=== PATIENT | female | born 1955 | race Caucasian/White ===

== ENCOUNTER 2017-08-18 20:56 | Inpatient (IN) | payer MEDICARE, MEDICAID ==
[2017-08-18 23:32] VITALS: BP 146/92
[2017-08-18] MEDS ORDERED: Magnesium Hydroxide (MOM) 30 mL UDC PO PRN (23:32)
[2017-08-18] MEDS ORDERED: Maalox 30 mL Cup PO PRN (23:32)
[2017-08-19] MEDS: Multivitamin Tab PO SCH (08:33)
--- NOTE | 2017-08-19 13:18 | History & Physical ---
ADMIT DATE: PATIENT IDENTIFICATION: A 62-year-old female. CHIEF COMPLAINT: "I don't know why they brought me here." HISTORY SOURCE: Talking to the patient and reviewing the chart. HISTORY OF PRESENT ILLNESS: The patient is a 62-year-old female, has diagnosis of multiple sclerosis since 1992, has chronic back pain, underwent laminectomy for her osteoarthritis and herniated disk disease, carries diagnosis of hypertension and insomnia, presented to local Emergency Room for altered mental status, where the patient was intubated and sedated and there the patient was extensively evaluated and noted to have bilateral infiltrate associated with toxic metabolic encephalopathy secondary to ingestion of doxepin. The patient was subsequently extubated and now transferred here to psych unit for further management. PAST MEDICAL HISTORY: Remarkable for; 1. Multiple sclerosis. 2. Hypertension. 3. Psychotic disorder. 4. DJD. 5. Osteoporosis. 6. History of back surgery for herniated disk disease. MEDICATIONS: At the time of transfer has been reviewed and reconciled appropriately. ALLERGIES: The patient is not allergic to any medications. SOCIAL HISTORY: The patient lives in [facility]. The patient has no history of smoking cigarette, alcohol or drug use. FAMILY MEDICAL HISTORY: Remarkable for cancer. REVIEW OF SYSTEMS: The patient stated that she is very unsteady and she falls multiple times at home. The patient denies any chest pain, shortness of breath, palpitation, dizziness, nausea, vomiting, diarrhea, dysuria, hematuria, hematochezia, melena. No seizure or syncopal episode. PAST SURGICAL HISTORY: Remarkable for ectopic and back surgery. PHYSICAL EXAMINATION: GENERAL: A 62-year-old, alert and awake, lying in the bed without any acute distress. VITAL SIGNS: Temperature 98, pulse is 74, respiratory rate is 18, and blood pressure 134/70. HEENT: Normocephalic and atraumatic. Extraocular muscles are intact. Tongue was pink and coated. Poor dentition noted. No oral lesions. No exudate. No sinus tenderness. NECK: Supple. No JVD. No hepatojugular reflux. No lymphadenopathy, thyromegaly or carotid bruit. HEART: Both heart sounds are regular. CHEST AND LUNGS: Equal in expansion. No wheezing. No crackles. ABDOMEN: Soft. No guarding, no rigidity. Bowel sounds present. No palpable mass. EXTREMITIES: No edema, no cyanosis. Peripheral pulses are +1. No calf tenderness noted. BACK: Remarkable for severe right convex scoliosis noted. No spinal tenderness noted. NEUROLOGIC: Alert, awake and oriented to time, place and person. 2-12 cranial nerves are intact. Power in upper and lower extremities are 4+. Unsteady gait with broad-based gait noted. Sensation to touch were both decreased noted. ____ Babinski's in both toes are going down. DIAGNOSTIC DATA: Available diagnostic data performed at outside the hospital. The patient's CT chest was done on August 11, was severe extensive bilateral infiltrate noted. The patient is also noted to have severe chronic deep white matter changes noted along with ____ in the left caudate head on the CT head also noted. CLINICAL IMPRESSION: 1. Status post doxepin overdose. 2. Aspiration pneumonia by chest x-ray. 3. Hypertension. 4. Multiple sclerosis. 5. High risk for fall. 6. Psychotic disorder. 7. Status post back surgery. 8. Osteoporosis. 9. Neurogenic bladder. PLAN: The patient is admitted at this time to Geropsych Unit. Psychotic evaluation management deferred to psychiatrist. We will get the followup chest x-ray. Appropriate home medicine reconciliation. Fall precautions were provided. General nursing care will be provided. We will continue to follow this patient during her stay in the hospital. Once the patient is stable, we will put the patient on Avonex, as the patient was receiving for her multiple sclerosis as well. I sincerely thank you, Dr. Montejo, for giving me the opportunity to participate in patient of yours. JOB# [id number]
[2017-08-19] MEDS ORDERED: PYRIDOXINE PO SCH (21:00)
[2017-08-19] MEDS ORDERED: MELATONIN PO SCH (21:00)
[2017-08-19] MEDS: Docusate Sodium/Senna Tab PO SCH (21:45)
--- NOTE | 2017-08-20 00:48 | Psychosocial Evaluation ---
DATE OF SERVICE: 08/19/2017 JUSTIFICATION FOR HOSPITALIZATION: 5150 hold. The patient overdosed on doxepin in a suicide effort. CHIEF COMPLAINT: "I was very depressed." HISTORY OF PRESENT ILLNESS: A 62-year-old female with history of multiple sclerosis for many years. The patient notes she has been depressed since 1982, worsening mood over the past few months after moving to [place], [place], states that too few people there speak [place]. The patient attest to "lousy sleep," okay appetite, loss of hope noting that her medical problems and living situations were "getting to me." The patient was feeling quite hopeless and despairing. Endorses ongoing depression. PAST PSYCHIATRIC HISTORY: Depression, no suicide history. SOCIAL HISTORY: Born in [place], since 1993, one daughter who is an adult. No drugs, no alcohol. The patient knows she is an ex-smoker, stopped smoking "years ago." MEDICAL: Please see full H and P. MENTAL STATUS EXAMINATION: Stated age. Fair eye contact. Speech, decreased content, low volume. Mood depressed. Affect withdrawn. Thought processes were linear. Thought content, status post serious overdose effort. No HI, no psychotic symptoms. Insight and judgment diminished. Poor impulse control. PROVISIONAL DIAGNOSES: Major depression, recurrent, severe, no psychosis. Also, insomnia unspecified, anxiety unspecified. MEDICAL: Please see full H and P including multiple sclerosis. ESTIMATED LENGTH OF STAY: 5-7 days. ASSESSMENT: The patient is depressed, tried to kill herself, remains hopeless and despairing. PLAN: We will continue medications and make appropriate adjustments. TREATMENT PLAN: Includes group as well as milieu therapy. CONDITIONS FOR DISCHARGE: Improved mood, improved affect, cessation of any SI, better coping. JOB# [id number]
[2017-08-20] MEDS ORDERED: [UNRECOGNIZED DRUG - OTHER] PO SCH (09:00)
[2017-08-20] MEDS ORDERED: HYDROCHLOROTHIAZIDE PO SCH (09:00)
[2017-08-20] MEDS ORDERED: LISINOPRIL PO SCH (09:00)
[2017-08-20] MEDS: Multivitamin Tab PO SCH (09:45)
--- NOTE | 2017-08-20 11:04 | Progress Notes ---
DATE: 08/20/2017 THE PATIENT'S ID: A 62-year-old female. SUBJECTIVE: The patient seen and examined. The patient is lying in the bed, no new event. The patient denies any chest pain, shortness of breath, palpitation, dizziness, nausea, vomiting. PHYSICAL EXAMINATION: VITAL SIGNS: Temperature 98, pulse is 64, respiration 18, blood pressure 130/80. HEENT: No facial asymmetry. Poor dentition noted. NECK: Supple, no JVD. HEART: Irregular. CHEST AND LUNGS: Equal in expansion. No wheezing, no crackles. ABDOMEN: Soft. EXTREMITIES: No edema. CLINICAL IMPRESSION: 1. Status post respiratory failure for doxepin overdose. 2. Hypertension. 3. Multiple sclerosis. 4. High risk for fall. 5. Psychotic disorder. 6. Osteoporosis. 7. Degenerative joint disease. 8. Neurogenic bladder. PLAN: 1. Await for followup chest x-ray. 2. Calcium with vitamin D supplement. 3. Psych medication. 4. Psych followup. 5. General nursing care. 6. Fall precautions. 7. Follow lab. 8. We will continue to follow this patient during the stay in the hospital. JOB# [id number]
--- NOTE | 2017-08-20 11:18 | Diagnostic Imaging Report ---
CHEST X-RAY: AP view INDICATION: Pneumonia COMPARISON: None FINDINGS: Chronic lung changes are seen with no focal consolidation or effusions. Heart size normal. Spinal scoliosis is noted. IMPRESSION: Chronic lung changes with no focal airspace consolidation identified.
[2017-08-20] MEDS: Docusate Sodium/Senna Tab PO SCH (21:19)
[2017-08-21 06:56] LABS: % BASOPHILS 0.6 % (0.0-2.0); % EOSINOPHILS 0.9 % (0.0-5.0); % LYMPHOCYTES 15.9 % (20.0-50.0); % NEUTROPHILS 77.6 % (40.0-80.0); BASOPHILE ABSOLUTE 0.1 Th/cumm (0-0.2); EOSINOPHILE ABSOLUTE 0.1 Th/cmm (0.1-0.4); HEMATOCRIT 39.6 % (41.0-60); LYMPHOCYTE ABSOLUTE 2.1 Th/cmm (1.5-3.0); MEAN CELL VOLUME 85.3 fl (81-100); MEAN CORPUSCULAR HGB CONC 32.9 pg (28.0-36.0); MEAN PLATELET VOLUME 7.1 fl; MONOCYTE ABSOLUTE 0.6 Th/cmm (0.3-1.0); PLATELET COUNT 721 Th/cmm (150-400); RED BLOOD COUNT 4.64 Mil/cmm (3.80-5.10); RED CELL DISTRIBUTION WIDTH 11.9 % (11.5-20.0); WHITE BLOOD COUNT 12.9 Th/cmm (4.8-10.8)
[2017-08-21 07:08] LABS: ALBUMIN 3.4 gm/dL (3.7-5.3); ALKALINE PHOSPHATASE 66 U/L (34-104); ANION GAP 11.8 (7.0-16.0); BILIRUBIN,TOTAL 0.4 mg/dL (0.3-1.0); BUN - UREA NITROGEN 20 mg/dL (7-25); CALCIUM SERUM 9.3 mg/dL (8.6-10.3); CARBON DIOXIDE 24.3 mEq/L (21.0-31.0); CHLORIDE 103 mEq/L (98-107); CREATININE - SERUM 0.7 mg/dL (0.6-1.2); GFR AFRICAN-AMERICAN > 60.0 ml/min (>90); GFR NON AFRICAN-AMERICAN > 60.0 ml/min; GLUCOSE 107 mg/dL (70-105); POTASSIUM SERUM 4.1 mEq/L (3.5-5.1); SGOT 20 U/L (13-39); SGPT/ALT 41 U/L (7-52); SODIUM SERUM 135 mEq/L (136-145); TOTAL PROTEIN,SERUM 6.8 gm/dL (6.0-8.3)
--- NOTE | 2017-08-21 08:18 | Progress Notes ---
DATE: SUBJECTIVE: The patient was seen, chart reviewed, discussed with staff. The patient is currently in the hospital. She has been severely depressed, overdosed on doxepin, a suicide effort. She remains depressed, withdrawn, but on a positive note, she is participating in physical therapy, sleeping well, eating fairly well, still remains withdrawn. ASSESSMENT: The patient is status post serious suicide effort, not safe for a lower level of care at this time and will continue to monitor and continue to assess for suicidality, continue to encourage group as well as milieu therapy. Medications were reviewed as well. JOB# [id number]
[2017-08-21] MEDS: Calcium Carb/Vit D 500 mg/200 U Tab PO SCH ×2 (08:33→16:23)
[2017-08-21] MEDS: Multivitamin Tab PO SCH (08:35)
--- NOTE | 2017-08-21 16:54 | Progress Notes ---
DATE: 08/21/2017 Case was discussed with staff of the patient, reviewed records. Covering for Dr. Montejo. This is a 52-year-old female who was admitted on 08/18/2017 after she did overdose on doxepin and suicide attempt, has been depressed since 1982, worsening mood over the past 2 months after moving to [place], [place], states that too few people there speak Irish. The patient states poor sleep, okay appetite. She has been quite hopeless and despairing ongoing depression. The patient continues to be depressed, overwhelmed. She is on a wheelchair. She is at fall risk. She has been on Abilify 2.5 mg in the evening and also she takes calcium carbonate, vitamin D one tablet twice a day and hydrochlorothiazide 12.5 mg daily, lisinopril 10 mg daily and also she was on multivitamin daily, Effexor 75 mg in the morning and with no side effects, no sedation, no nausea, no extrapyramidal symptoms. I will continue on outpatient group and milieu therapy. [facility]# [id number]
[2017-08-21] MEDS: Docusate Sodium/Senna Tab PO SCH (21:10)
[2017-08-22] MEDS: Multivitamin Tab PO SCH (09:36)
[2017-08-22] MEDS: Calcium Carb/Vit D 500 mg/200 U Tab PO SCH ×2 (09:38→17:06)
[2017-08-22] MEDS: Docusate Sodium/Senna Tab PO SCH (21:05)
--- NOTE | 2017-08-23 01:25 | Progress Notes ---
DATE: 08/22/2017 PSYCHIATRIC FOLLOWUP NOTE The patient was seen and evaluated. The patient's chart reviewed. Covering for Dr. Montejo. IDENTIFYING DATA: A 62-year-old female with a history of multiple sclerosis for many years. She has been depressed in 1982, feeling overwhelmed and currently living in [place], alluding to a lot of depression. Current medications regimen includes the following: Lisinopril, hydrochlorothiazide, Ativan and Effexor 75 mg. Today, on [id number] evaluation, the patient is very irritable, agitated, reported to be feeling depressed and she reports being lonely for a very long time. MENTAL STATUS EXAMINATION: Depressed, melancholic, aloof ___. ASSESSMENT AND PLAN: The patient is a 62-year-old female who presents with aloof, depressed and melancholic. Tolerating the recent augmentation of Abilify and Effexor without complication. We will continue with the current medication regimen if continues to be steady state. [facility]# [id number]
[2017-08-23] MEDS: Calcium Carb/Vit D 500 mg/200 U Tab PO SCH ×2 (10:02→17:13)
[2017-08-23] MEDS: Multivitamin Tab PO SCH (10:02)
--- NOTE | 2017-08-23 20:23 | Progress Notes ---
DATE: 08/23/2017 SUBJECTIVE: The patient was seen and evaluated. The patient's chart reviewed. Covering for Dr. Montejo. Today on [id number] evaluation, she reports that she still continues to be sad, overwhelmed. She feels like nothing is helping. MENTAL STATUS EXAMINATION: Depressed, melancholic, aloof. ASSESSMENT AND PLAN: A 62-year-old female with a history of severe depression, continues to feel very withdrawn, disengaged, tolerating the recent augmentation of Abilify and Effexor without complications or side effects of medications. We will continue with the current medication regimen. She continues to be in steady state and continue following primary psychiatrist's treatment plan and goals. [facility]# [id number]
[2017-08-23] MEDS: Docusate Sodium/Senna Tab PO SCH (21:21)
--- NOTE | 2017-08-24 02:45 | Progress Notes ---
DATE: 08/23/2017 SUBJECTIVE: The patient is seen and examined. No new complaint. PHYSICAL EXAMINATION: VITAL SIGNS: Temperature 97, pulse is 68, respiratory rate 18, blood pressure 144/76. HEENT: No facial asymmetry. NECK: Supple, no JVD. HEART: Regular, no murmur. CHEST: Equal in expansion, no wheezing, no crackles. ABDOMEN: Soft. No guarding or rigidity. Bowel sounds are not palpable. EXTREMITIES: No edema. NEUROLOGIC: Alert, follows commands. MAR and nurse's note is reviewed. CLINICAL IMPRESSION: 1. Hypertension. 2. Multiple sclerosis. 3. Psychotic disorder. 4. Osteoporosis. 5. Degenerative joint disease. 6. Neurogenic bladder. 7. High risk for fall. PLAN: 1. Fall precautions. 2. Avonex as ordered. 3. General nursing care. 4. Psych medication. 5. Psych followup. 6. Continue current medication. 7. Symptoms management. 8. Medication management. 9. Care plan reviewed and discussed. JOB# [id number]
[2017-08-24] MEDS: Multivitamin Tab PO SCH (09:19)
[2017-08-24] MEDS: Calcium Carb/Vit D 500 mg/200 U Tab PO SCH ×2 (09:19→17:13)
--- NOTE | 2017-08-24 19:03 | Progress Notes ---
DATE: 08/24/[address] Montejo. I appreciate the followup note. Medical doctor will continue his medical recommendations as Avonex was recently ordered, general nursing care and continue with the current medical treatment. Today on [id number] evaluation, the patient reports that she is still very distraught, overwhelmed. MENTAL STATUS EXAMINATION: Depressed, withdrawn, disengaged. ASSESSMENT AND PLAN: A 62-year-old female with severe depression, withdrawn and disengaged, unable to formulate a safe plan outside the structured environment. We will continue monitoring and evaluating, continue working very closely with the rehabilitation caseworker for safe dispo once the patient is further stabilized. JOB# [id number]
[2017-08-24] MEDS: Docusate Sodium/Senna Tab PO SCH (20:42)
[2017-08-25] MEDS: Multivitamin Tab PO SCH (09:44)
[2017-08-25] MEDS: Calcium Carb/Vit D 500 mg/200 U Tab PO SCH ×2 (09:45→17:47)
[2017-08-25] MEDS: Docusate Sodium/Senna Tab PO SCH (20:49)
--- NOTE | 2017-08-25 23:58 | Progress Notes ---
DATE: 08/25/2017 SUBJECTIVE: The patient in the hospital, history of multiple sclerosis, tried to kill herself, overdosed on doxepin. The patient remains somewhat depressed, withdrawn. She, on a positive note is alluding to more hopes, states her mood is somewhat better. States she is involved and in touch with her slip cover cutter, attests to poor sleep, but she is hopeful about the future, concerns about her depression and her suicide attempt, but she does seem to be with better insight. ASSESSMENT: The patient remains depressed, withdrawn, status post an overdose . PLAN: We will continue to monitor. We will continue to titrate and adjust medications. Continue low dose Abilify. Given her suicide history, there are ongoing safety concerns. [facility]# [id number]
[2017-08-26] MEDS: Multivitamin Tab PO SCH (08:57)
[2017-08-26] MEDS: Calcium Carb/Vit D 500 mg/200 U Tab PO SCH ×2 (08:58→16:31)
[2017-08-26] MEDS: Docusate Sodium/Senna Tab PO SCH (21:19)
--- NOTE | 2017-08-27 06:27 | Progress Notes ---
DATE: 08/26/2017 SUBJECTIVE: The patient is currently in the hospital, tried to kill herself, overdosed on doxepin, noted with improvement. States she is feeling somewhat better, more optimistic, hopeful, allowing ADLs. No agitation. No combative behaviors. Sleeping fairly well, eating well per staff, no events. ASSESSMENT: The patient seems to be improving, somewhat calmer, any thoughts of self-harm are dissipating and decreasing. MEDICATIONS: Reviewed. PLAN: We will continue to monitor. We are trying to confirm a safe discharge plan at this time, the patient as of yet not stable but showing signs of improvement. JOB# [id number]
[2017-08-27] MEDS: Calcium Carb/Vit D 500 mg/200 U Tab PO SCH ×2 (09:25→16:31)
[2017-08-27] MEDS: Multivitamin Tab PO SCH (09:26)
--- NOTE | 2017-08-27 09:58 | Progress Notes ---
DATE: 08/26/2017 SUBJECTIVE: The patient seen and examined. The patient is lying in the bed. The patient has no new concerns. Discussed with our nursing staff about their concerns and treatment plan as well. PHYSICAL EXAMINATION: VITAL SIGNS: See nurse's note. HEENT: No facial asymmetry. Poor dentition noted. NECK: Supple, no JVD. HEART: Regular. CHEST: Lung equal in expansion. No wheezing, no crackles. ABDOMEN: Soft, no guarding. Active bowel sounds. Liver and spleen not palpable. EXTREMITIES: No edema. NEUROLOGIC: Alert, awake, follows commands. Decreased power throughout the upper and lower extremity. CLINICAL IMPRESSION: 1. Hypertension. 2. Multiple sclerosis. 3. Psychiatric disorder. 4. Osteoporosis. 5. Degenerative joint disease. 6. Neurogenic bladder. 7. High risk for fall. PLAN: 1. Monitor blood pressure. 2. Antihypertensive medicine. 3. Avonex. 4. Psych medication. 5. Psych followup. 6. Nutritional support. 7. General nursing care. 8. PRN Alicia catheter. 9. Care plan reviewed and discussed with staff. JOB# [id number]
[2017-08-27] MEDS: Docusate Sodium/Senna Tab PO SCH (20:55)
[2017-08-28] MEDS: Calcium Carb/Vit D 500 mg/200 U Tab PO SCH (08:14)
[2017-08-28] MEDS: Multivitamin Tab PO SCH (08:14)
--- NOTE | 2017-08-28 11:12 | Progress Notes ---
DATE: 08/27/2017 SUBJECTIVE: The patient is currently in the hospital, overdosed on doxepin, seems to be improving, more participant, more engaged. Staff noting the patient seems to be in better spirits. The patient would like to return home. Hopeful to return home. The patient does have services at home. We are trying to get her more hours if possible. Daughter is involved. The patient noting that she still has some depressive symptoms, but is certainly feeling better. Notes that her overdose was "stupid" and she regrets it. ASSESSMENT: The patient seems to be improving, seems to be tolerant of treatment, some residual depressive symptoms, but no overt SI. PLAN: We will increase Abilify. We will continue to monitor and titrate and adjust medications. JOB# [id number]
[2017-08-28] MEDS: Docusate Sodium/Senna Tab PO SCH (20:10)
--- NOTE | 2017-08-29 07:12 | Progress Notes ---
DATE: 08/28/2017 SUBJECTIVE: The patient is currently in the hospital, got overdosed on doxepin, seems to be improving. We are trying to optimize her home environment in regard to hour increases to the caregiver services. Given her overdose attempt, we would like her to have more supervision. The patient notes she is feeling better. She is frustrated up being in the hospital. Sleeping well, eating well, getting along well with staff and peers, still with some isolation. ASSESSMENT: The patient remains symptomatic, depressed, withdrawn, but improvement noted. PLAN: We will continue to monitor, adjust and titrate medications. We will coordinate care with social service coordinator. JOB# [id number]
[2017-08-29] MEDS: Calcium Carb/Vit D 500 mg/200 U Tab PO SCH ×2 (09:57→17:51)
[2017-08-29] MEDS: Multivitamin Tab PO SCH (09:57)
--- NOTE | 2017-08-29 19:14 | Progress Notes ---
DATE: 08/29/2017 SUBJECTIVE: The patient is currently in the hospital, tried to kill herself. She has been doing somewhat better, more cooperative, somewhat withdrawn, isolative, well oriented, still remains depressed, withdrawn, but noting any thoughts of self-harm or dissipating decreasing. We are trying to get the patient more home health hours. She has a diagnosis of multiple sclerosis. ASSESSMENT: The patient remains depressed, withdrawn, thoughts of self-harm seems to be dissipating and decreasing. Abilify and Effexor seem to be helping. PLAN: We will continue to monitor and follow up. Given her ongoing symptoms, she is not safe for discharge at this time. JOB# [id number]
[2017-08-29] MEDS: Docusate Sodium/Senna Tab PO SCH (20:36)
--- NOTE | 2017-08-30 09:22 | Progress Notes ---
DATE: 08/30/2017 SUBJECTIVE: The patient in the hospital, status post suicide effort. She is noting that she is feeling better, more hopeful, more optimistic, sleeping well, complaining of some noisiness, and is eating well. She is motivated to participate in physical therapy, staff noting brighter affect. ASSESSMENT: The patient with some depression and social withdrawal, but seems to be improving. She is more sociable versus admission. She has a brighter affect. Denying any SI PLAN: We are trying to confirm a safe discharge plan: We will continue to monitor and adjust and titrate medications. JOB# [id number]
[2017-08-30] MEDS: Calcium Carb/Vit D 500 mg/200 U Tab PO SCH ×2 (09:51→17:31)
[2017-08-30] MEDS: Multivitamin Tab PO SCH (09:52)
--- NOTE | 2017-08-30 18:37 | Progress Notes ---
DATE: IDENTIFICATION: A 62-year-old female. SUBJECTIVE: The patient seen and examined. The patient is lying in the bed. The patient denies any chest pain, shortness of breath, palpitation, dizziness, nausea, vomiting, diarrhea. PHYSICAL EXAMINATION: VITAL SIGNS: See nurse's note. HEENT: No facial asymmetry. Poor dentition noted. Tongue was pink and coated. NECK: Supple. No JVD, no lymphadenopathy or thyromegaly, or carotid bruit. HEART: Both heart sounds are regular. CHEST: Lung equal in expansion. No wheezing, no crackles. ABDOMEN: Soft. No guarding. No rigidity. Bowel sounds present. No palpable mass. EXTREMITIES: No edema. NEUROLOGIC: Alert, awake, follows command. Medication administration record was reviewed. CLINICAL IMPRESSION: 1. Hypertension. 2. Multiple sclerosis. 3. Osteoporosis. 4. Degenerative joint disease. 5. Neurogenic bladder. 6. Psychotic disorder exacerbation. 7. High risk for fall. PLAN: 1. Monitor blood pressure. 2. Antihypertensive medicine. 3. Psych medication. 4. Psych followup. 5. ____. 6. General nursing care. 7. Symptoms management. 8. Medication management. 9. Care plan reviewed and discussed with staff. JOB# [id number]
[2017-08-30] MEDS: Docusate Sodium/Senna Tab PO SCH (20:02)
[2017-08-31] MEDS: Multivitamin Tab PO SCH (08:40)
[2017-08-31] MEDS: Calcium Carb/Vit D 500 mg/200 U Tab PO SCH ×2 (08:41→16:34)
--- NOTE | 2017-08-31 17:24 | Discharge Summary ---
DATE OF DISCHARGE: 08/31/2017 JUSTIFICATION FOR HOSPITALIZATION: Overdose on doxepin and suicide effort. HISTORY OF PRESENT ILLNESS: This 62-year-old female with history of multiple sclerosis, depressed since 1982, worsening due to recent move. The patient attests to poor sleep, okay appetite, loss of hope, feeling hopeless and despairing. SOCIAL HISTORY: Noted. PAST PSYCHIATRIC HISTORY: Depression. This is her first suicide effort. MENTAL STATUS EXAMINATION: Please see full psych eval for details. PROVISIONAL DIAGNOSES: Major depression, recurrent, severe, no psychosis. Also insomnia, unspecified and anxiety, unspecified. MEDICAL HISTORY: Please see full H and P. HOSPITAL COURSE: After initial assessment, the patient restarted on medications including Abilify, Effexor, these medication doses were titrated. Over the course of the hospitalization, her mood improved, affect improved, noted to be in better spirits, more hopeful, more motivated, more optimistic, also more sociable and engaged, now well oriented and denying any SI and participant in physical therapy, increased home health hours were sought after by window caser. The patient noting more hope, more optimism. By 08/31/2017, the patient was devoid of any suicidal thoughts and was noted to be improving and was discharged. CONDITION UPON DISCHARGE: Improved, better ADLs, good eye contact. Mood "better." Affect broad. Thought processes were linear. No SI, no HI, no intent, no plan. No psychotic symptoms. Insight and judgment improved. The patient hopeful. The patient alluding to motivation and optimism. Sleeping better, eating well, socializing well, participant in groups. DISCHARGE DIAGNOSES: Major depression, recurrent, severe, no psychosis. MEDICAL: Please see full H and P. PROGNOSIS: If the patient follows up with outpatient mental health services and remains compliant with treatment, prognosis will improve, otherwise guarded. JOB# [id number]
== END 2017-08-31 20:05 | disposition home or self-care (01) | DRG 885 ==
LOC: GERO 20:56
PROVIDERS: ADMIT Psychiatry & Neurology Psychiatry; ATTEND Psychiatry & Neurology Psychiatry
DX: F33.2 Major depressive disorder, recurrent severe without psychotic features (principal); T43.012A Poisoning by tricyclic antidepressants, intentional self-harm, initial encounter; J69.0 Pneumonitis due to inhalation of food and vomit; G47.00 Insomnia, unspecified; F41.9 Anxiety disorder, unspecified; I10 Essential (primary) hypertension; G35 Multiple sclerosis; Z91.81 History of falling; M81.0 Age-related osteoporosis without current pathological fracture; N31.9 Neuromuscular dysfunction of bladder, unspecified; G89.29 Other chronic pain; M54.9 Dorsalgia, unspecified; F29 Unspecified psychosis not due to a substance or known physiological condition; Y92.89 Other specified places as the place of occurrence of the external cause
CPT/HCPCS: 36415-UA; 71045-TC; 80053-TC; 82948-90; 85025-TC; 97530; G0410; X3904; Z7610